=== PATIENT | female | born 1995 | race Caucasian/White ===

== ENCOUNTER 2018-11-11 08:47 | Emergency (ER) | payer SELFPAY ==
[2018-11-11 08:53] VITALS: BP 133/71
--- NOTE | 2018-11-11 10:32 | ER Document Report ---
HPI - HPI Time Seen by Provider: 11/11/18 09:57 Pain Level: 0 Notes: Patient is a 23-year-old female with no significant past medical history presents emergency department complaining of increased life stressors and feeling more anxious over the last couple days. Patient states that she had a panic attack yesterday where she felt chest tightness, dizzy, lightheadedness, and palpitations which she has had multiple times in the past. Patient states that this started when she was driving her vehicle, and subsided after she was able to calm herself down. Patient has not been on any medicines for anxiety or depression in the past. She has no SI/HI. No visual or auditory hallucinations. Patient states her last menstrual period was 2 weeks ago. She is otherwise eating and drinking without difficulty. She is urinating normally and having normal bowel movements. Patient states that she did have another episode this morning which has since resolved. Denies any prolonged immobilization, distance travel, recent surgery/trauma, personal cancer history, hormone use, smoking, or previous DVT/PE. Denies (current) any headache, fever, neck pain, changes in vision/speech/mentation/hearing, URI, sore throat, chest pain, palpitations, syncope, cough, shortness of breath, wheeze, dyspnea, abdominal pain, nausea/vomiting/diarrhea, urinary retention, dysuria, hematuria, loss of control of bowel or bladder, numbness/tingling, saddle anesthesia, muscle paralysis/weakness, or rash. - ROS Systems Reviewed and Negative: Yes All other systems reviewed and negative - REPRODUCTIVE Reproductive: DENIES: : Past Medical History - Social History Smoking Status: Never Smoker Family History: Reviewed & Not Pertinent Patient has suicidal ideation: No Patient has homicidal ideation: No Renal/ Medical History: Denies: Hx Peritoneal Dialysis - Immunizations Hx Diphtheria, Pertussis, Tetanus Vaccination: Yes Vertical Provider Document - CONSTITUTIONAL Agree With Documented VS: Yes Notes: PHYSICAL EXAMINATION: GENERAL: Well-appearing, well-nourished and in no acute distress. A&Ox4. Answers questions appropriately. HEAD: Atraumatic, normocephalic. EYES: Pupils equal round and reactive to light, extraocular movements intact, sclera anicteric, conjunctiva are normal. ENT: Nares patent and without discharge. oropharynx clear without exudates. No tonsilar hypertrophy or erythema. Moist mucous membranes. NECK: Normal range of motion, supple without lymphadenopathy LUNGS: Breath sounds clear to auscultation bilaterally and equal. No wheezes rales or rhonchi. HEART: Regular rate and rhythm without murmurs, rubs, gallops. ABDOMEN: Soft, nontender, nondistended abdomen. No guarding, no rebound. No masses appreciated. Normal bowel sounds present. No CVA tenderness bilaterally. Musculoskeletal: FROM to passive/active. Strength 5+/5. Ronaldo neg. No asymmetry to LE's. Extremities: No cyanosis, clubbing, or edema b/l. Peripheral pulses 2+. Capillary refill less than 3 seconds. NEUROLOGICAL: Normal speech, normal gait. Cranial nerves grossly intact. PSYCH: Normal mood, normal affect. SKIN: Warm, Dry, normal turgor, no rashes or lesions noted. Course - Re-evaluation Re-evalutation: 11/11/18 10:30 Patient is an afebrile, well-hydrated 23-year-old female who presents to the ED with symptoms most consistent with anxiousness. Vitals are acceptable without any significant tachycardia, tachypnea, or hypoxia. PE is otherwise unremarkable. Patient is nontoxic-appearing and is tolerating p.o. without any difficulties. Pt is currently asymptomatic. EKG unremarkable for any acute pathology. Patient has a Wells score of 0 and is PERC negative. Patient does not have any chest pain, dyspnea, or shortness of breath. Patient's presentation and symptomatology creates low suspicion for ACS, PE, pneumothorax, pericarditis, dissection, respiratory compromise, severe dehydration, sepsis, meningitis, or other systemic emergent condition at this time. Patient is aware that this condition can change from initial presentation and she needs to monitor symptoms closely and seek medical attention for any acute changes. Rx for hydroxyzine. Recommend conservative measures for symptoms. Recheck with your PCM in 2-3 days. Consider consult with Cardiology. Return to the ED with any worsening/concerning symptoms otherwise as reviewed in discharge. Patient is in agreement. - Vital Signs Vital signs: Temp Pulse Resp BP Pulse Ox 97.9 F 83 16 133/71 H 100 11/11/18 08:52 11/11/18 08:52 11/11/18 08:52 11/11/18 08:52 11/11/18 08:52 Discharge - Discharge Clinical Impression: Anxiousness Condition: Stable Disposition: HOME, SELF-CARE Instructions: Anxiety ([facility]) Additional Instructions: Maintain adequate fluid and food intake Take home medications as directed Healthy diet/exercise De-stressing techniques Monitor blood pressure and heart rate daily and keep a log Monitor symptoms for any acute changes Recheck with your PCM in 3-5 days Consider a follow-up with cardiology/Psychology clinic Return to the ED with any worsening symptoms and/or development of fever, headache, chest pain, palpitations, syncope, shortness of breath, trouble breathing, abdominal pain, n/v/d, blood in stool/urine, loss of control of bowel/bladder, urinary retention, muscle weakness/paralysis, numbness/tingling, or other worsening symptoms that are concerning to you. Prescriptions: Hydroxyzine Pamoate [Vistaril 25 mg Capsule] 25 mg PO TID PRN #15 capsule PRN Reason: Forms: Elevated Blood Pressure Referrals: [facility] [Provider Group] - Follow up as needed [facility] [Provider Group] - Follow up as needed KRISTIN GIVENS MD [ACTIVE STAFF] - Follow up as needed
--- NOTE | 2018-11-12 00:29 | EKG REPORT ---
SEVERITY:- NORMAL ECG - SINUS RHYTHM : Confirmed by: Evelyn Kirkland MD 12-Nov-2018 00:28:21
== END 2018-11-11 10:47 | disposition home or self-care (01) ==
LOC: ER 08:47
DX: F41.9 Anxiety disorder, unspecified (principal)
CPT/HCPCS: 93005; 93010; 99283

== ENCOUNTER 2019-05-19 23:44 | Emergency (ER) | payer SELFPAY ==
--- NOTE | 2019-05-20 02:11 | ER Document Report ---
ED GI/ - General Chief Complaint: Constipation Stated Complaint: BLOOD IN STOOL Time Seen by Provider: 05/20/19 01:43 [facility] [[facility]] - Follow up as needed Mode of Arrival: Ambulatory Information source: Patient Notes: This 23-year-old female patient comes emergency room for evaluation of blood in her stool. She has an aversion to using public restrooms, so she tries to hold her stool throughout the day at work and only use the restroom when she gets home. She recently got constipated from doing this, and ultimately ended up going to the emergency room at [facility] where she was evaluated and told she was constipated. She did use stool softeners and eventually began passing stool and states that it had intermittently become liquid. She does report passing some large hard stool at some point and straining a lot. She states she does have a history of hemorrhoids. She noted blood in her stool last night and today, and notes some pain in passing stool and and wiping. She looked up blood in stool on [employer] this evening and so the lower abdominal pain and blood in stool could be a sign of colon cancer and this prompted her to come to the emergency room. TRAVEL OUTSIDE OF THE [place] IN LAST 30 DAYS: No - Related Data Allergies/Adverse Reactions: No Known Allergies Allergy (Unverified 11/11/18 08:50) Past Medical History - General Information source: Patient - Social History Smoking Status: Unknown if Ever Smoked Cigarette use (# per day): No Chew tobacco use (# tins/day): No Smoking Education Provided: No Frequency of alcohol use: None Drug Abuse: None Lives with: Family Family History: Reviewed & Not Pertinent - Medical History Medical History: Negative GI Medical History: Reports: Other - Patient reports hemorrhoids after childbirth. Surgical Hx: Negative - Immunizations Hx Diphtheria, Pertussis, Tetanus Vaccination: Yes Review of Systems - Review of Systems Constitutional: No symptoms reported EENT: No symptoms reported Cardiovascular: No symptoms reported Respiratory: No symptoms reported Gastrointestinal: Abdominal pain, Constipation, Rectal bleeding Genitourinary: No symptoms reported Musculoskeletal: No symptoms reported Skin: No symptoms reported Hematologic/Lymphatic: No symptoms reported Neurological/Psychological: No symptoms reported Physical Exam - Vital signs Vitals: Temp Pulse Resp BP Pulse Ox 98.8 F 103 H 20 126/79 H 99 05/20/19 00:01 05/20/19 00:01 05/20/19 00:01 05/20/19 00:01 05/20/19 00:01 Interpretation: Normal - General General appearance: Appears well, Alert In distress: None - HEENT Head: Normocephalic, Atraumatic Eyes: Normal Pupils: PERRL - Respiratory Respiratory status: No respiratory distress - Cardiovascular Rhythm: Regular - Abdominal Inspection: Normal Tenderness: Nontender - Rectal Hemorrhoids: Anal fissure - There is a fissure noted at about 4 o'clock in the knee chest position which is quite tender to palpate. - Back Back: Normal - Extremities General upper extremity: Normal inspection General lower extremity: Normal inspection - Neurological Neuro grossly intact: Yes - Psychological Associated symptoms: Normal affect, Normal mood - Skin Skin Temperature: Warm Skin Moisture: Dry Skin Color: Normal Course - Vital Signs Vital signs: Temp Pulse Resp BP Pulse Ox 98.2 F 89 16 112/86 H 100 05/20/19 02:00 05/20/19 02:00 05/20/19 02:00 05/20/19 02:00 05/20/19 02:00 Discharge - Discharge Clinical Impression: Anal fissure Condition: Stable Disposition: HOME, SELF-CARE Additional Instructions: Anal Fissure You have a split in the tissues of the anus, called an anal fissure. This may be due to constipation, or chronic anal irritation. The fissure causes pain during bowel movements. It may bleed when you pass stool. Treat the fissure with warm sitz baths three or four times a day. Clean the anal area carefully -- special cleansing pads (Tucks) may be helpful. Sometimes prescription suppositories are helpful in reducing pain and inflammation. A stool softener (such as Metamucil) will make bowel movements less traumatic. Eat a diet high in fiber (fruits, whole grains), and drink plenty of water. See your doctor if there is profuse bleeding, increasing pain, an enlarging mass, or fever -- or if the symptoms do not resolve after treatment. Follow-up with [place] [facility] if not improving. RETURN TO THE EMERGENCY ROOM IF ANY NEW OR WORSENING SYMPTOMS. Referrals: [facility] [Provider Group] - Follow up as needed
[2019-05-20 02:36] VITALS: BP 112/86
== END 2019-05-20 02:36 | disposition home or self-care (01) ==
LOC: ER 23:44
DX: K60.2 Anal fissure, unspecified (principal); K59.00 Constipation, unspecified; R10.9 Unspecified abdominal pain

== ENCOUNTER 2019-07-28 21:44 | Emergency (ER) | payer MEDICAID ==
[2019-07-28 21:53] VITALS: BP 132/90
--- NOTE | 2019-07-28 22:31 | ER Document Report ---
ED Medical Screen (RME) - General Chief Complaint: Vaginal Bleeding Stated Complaint: VAGINAL BLEEDING Time Seen by Provider: 07/28/19 22:28 Mode of Arrival: Ambulatory Information source: Patient Notes: 23-year-old female presents emergency department with reports of heavy vaginal bleeding with clotting for the past 3 hours. Reports she is gone through 6 super size tampons in the last 3 hours. Reports she just had the Nexplanon removed on Friday. Denies abdominal pain. Denies fever vomiting diarrhea. Reports this never happened to her before. I have greeted and performed a rapid initial assessment of this patient. A comprehensive ED assessment and evaluation of the patient, analysis of test results and completion of the medical decision making process will be conducted by additional ED providers. Dictation of this chart was performed using voice recognition software; therefore, there may be some unintended grammatical errors. TRAVEL OUTSIDE OF THE [place] IN LAST 30 DAYS: No - Related Data Allergies/Adverse Reactions: No Known Allergies Allergy (Unverified 11/11/18 08:50) Past Medical History Renal/ Medical History: Denies: Hx Peritoneal Dialysis - Immunizations Hx Diphtheria, Pertussis, Tetanus Vaccination: Yes Physical Exam - Vital signs Vitals: Temp Pulse Resp BP Pulse Ox 98.1 F 98 16 132/90 H 100 07/28/19 21:52 07/28/19 21:52 07/28/19 21:52 07/28/19 21:52 07/28/19 21:52 Course - Vital Signs Vital signs: Temp Pulse Resp BP Pulse Ox 98.1 F 98 16 132/90 H 100 07/28/19 21:52 07/28/19 21:52 07/28/19 21:52 07/28/19 21:52 07/28/19 21:52
[2019-07-28 23:15] LABS: ABSOLUTE BASOPHILS # (AUTO) 0.1 10^3/uL (0.0-0.2); ABSOLUTE EOSINOPHILS # (AUTO) 0.3 10^3/uL (0.0-0.6); ABSOLUTE LYMPHOCYTES (AUTO) 2.1 10^3/uL (0.5-4.7); ABSOLUTE MONOCYTES (AUTO) 0.5 10^3/uL (0.1-1.4); ABSOLUTE NEUT (AUTO) 5.1 10^3/uL (1.7-8.2); BASOPHILS % (AUTO) 0.9 % (0-2); EOSINOPHILS % (AUTO) 3.4 % (0-6); HEMATOCRIT 38.1 % (36.0-47.0); LYMPHOCYTES % (AUTO) 26.4 % (13-45); MEAN CORPUSCULAR HEMOGLOBIN 29.7 pg (27.0-33.4); MEAN CORPUSCULAR HGB CONC 34.1 g/dL (32.0-36.0); MEAN CORPUSCULAR VOLUME 87 fl (80-97); MONOCYTES % (AUTO) 6.5 % (3-13); PLATELET COUNT 267 10^3/uL (150-450); RED BLOOD COUNT 4.37 10^6/uL (3.72-5.28); RED CELL DISTRIBUTION WIDTH 12.9 % (11.5-14.0); SEGMENTED NEUTROPHILS % (AUTO) 62.8 % (42-78); TOTAL CELLS COUNTED % (AUTO) 100 %; WHITE BLOOD COUNT 8.1 10^3/uL (4.0-10.5)
[2019-07-28 23:33] LABS: BILIRUBIN,URINE NEGATIVE (NEGATIVE); GLUCOSE, URINE NEGATIVE (NEGATIVE); KETONES,URINE NEGATIVE (NEGATIVE); LEUKOCYTE ESTERASE,URINE NEGATIVE (NEGATIVE); NITRITE,URINE NEGATIVE (NEGATIVE); PROTEIN,URINE 100 mg/dL (NEGATIVE); URINE SPECIFIC GRAVITY 1.019; UROBILINOGEN,URINE NEGATIVE mg/dL (<2.0)
[2019-07-28 23:34] LABS: APPEARANCE,URINE TURBID; COLOR,URINE RED
[2019-07-28 23:37] LABS: ALBUMIN 3.9 g/dL (3.5-5.0); ALKALINE PHOSPHATASE 69 U/L (38-126); ANION GAP 9 (5-19); ASPARTATE AMINO TRANSFERASE 15 U/L (14-36); BILIRUBIN,DIRECT 0.1 mg/dL (0.0-0.4); BILIRUBIN,TOTAL 0.2 mg/dL (0.2-1.3); BLOOD UREA NITROGEN 9 mg/dL (7-20); CALCIUM 8.8 mg/dL (8.4-10.2); CARBON DIOXIDE 23 mmol/L (22-30); CHLORIDE 109 mmol/L (98-107); GLUCOSE 105 mg/dL (75-110); TOTAL PROTEIN 6.8 g/dL (6.3-8.2)
== END 2019-07-29 02:00 | disposition left against medical advice (07) ==
LOC: ER 21:44
DX: N93.9 Abnormal uterine and vaginal bleeding, unspecified (principal); Z98.890 Other specified postprocedural states; Z53.20 Procedure and treatment not carried out because of patient's decision for unspecified reasons
CPT/HCPCS: 36415; 80053; 81001; 81025; 85025; 99281

== ENCOUNTER 2019-10-17 01:49 | Emergency (ER) | payer MEDICAID ==
[2019-10-17] MEDS ORDERED: PENICILLIN V POTASSIUM 500 MG TABLET PO ONE (04:37)
--- NOTE | 2019-10-17 04:40 | ER Document Report ---
HPI - HPI Time Seen by Provider: 10/17/19 04:30 Pain Level: 4 Context: Patient is a 24-year-old female that comes emergency department for chief complaint of developing pain over the past several days in her left upper jaw radiating up towards the left ear. She denies neck pain, sore throat, fever, change in hearing, drainage from the ear. She denies trauma. She has known dental fractures but does not have a dentist. LMP within the past month. She denies any diagnosed medical history or daily medications. - CONSTITUTIONAL Constitutional: DENIES: Fever, Chills - EENT EENT: REPORTS: Ear Pain - left ear - REPRODUCTIVE LMP: 1 wk ago Reproductive: DENIES: : Past Medical History - General Information source: Patient - Social History Smoking Status: Current Every Day Smoker Frequency of alcohol use: None Drug Abuse: None Lives with: Family Family History: Reviewed & Not Pertinent Patient has suicidal ideation: No Patient has homicidal ideation: No Renal/ Medical History: Denies: Hx Peritoneal Dialysis Surgical Hx: Negative - Immunizations Hx Diphtheria, Pertussis, Tetanus Vaccination: Yes Vertical Provider Document - CONSTITUTIONAL General Appearance: WD/WN, No Apparent Distress - INFECTION CONTROL TRAVEL OUTSIDE OF THE [place] IN LAST 30 DAYS: No - HEENT HEENT: Atraumatic, Normocephalic. negative: Normal ENT Exam - There are multiple fractured teeth in the posterior molars on the left upper and lower side, there is erythema and tenderness of the left upper gumline. Normal oropharyngeal exam otherwise with no signs of abscess. Normal facial exam, normal ear exam, normal mastoids. - NECK Neck: Normal Inspection - RESPIRATORY Respiratory: Breath Sounds Normal, No Respiratory Distress - CARDIOVASCULAR Cardiovascular: Regular Rate, Regular Rhythm - GI/ABDOMEN Gastrointestinal: Abdomen Soft, Abdomen Non-Tender - BACK Back: Normal Inspection - MUSCULOSKELETAL/EXTREMETIES Musculoskeletal/Extremeties: MAEW, FROM, Non-Tender - NEURO Level of Consciousness: Awake, Alert, Appropriate Motor/Sensory: No Motor Deficit, No Sensory Deficit - DERM Integumentary: Warm, Dry, No Rash Course - Re-evaluation Re-evalutation: No evidence of ear infection but patient does have evidence of dental fractures and secondary dental infection. No signs of abscess or concerning findings otherwise. Discussed treatment, follow-up, return precautions. Patient states understanding and agreement. - Vital Signs Vital signs: Temp Pulse Resp BP Pulse Ox 97.9 F 81 20 130/88 H 100 10/17/19 01:56 10/17/19 01:56 10/17/19 01:56 10/17/19 01:56 10/17/19 01:56 Discharge - Discharge Clinical Impression: Pain, dental, Dental infection Condition: Stable Disposition: HOME, SELF-CARE Additional Instructions: Your evaluation is consistent with a dental fracture and developing dental infection. Take antibiotics as prescribed to completion. Take Tylenol and ibuprofen together for pain (up to 600 mg of ibuprofen and 1000 g of Tylenol every 6 hours). Follow closely with the dental referral listed below. Return if you worsen including swelling of the face or any other concerning or worsening symptoms. [facility] [address], [address] Prescriptions: Penicillin V Potassium [Penicillin Vk 500 mg Tablet] 500 mg PO BID #20 tablet Referrals: NICOLLE ROGERS FNP-C [Primary Care Provider] - Follow up as needed
[2019-10-17 05:02] VITALS: BP 138/68
== END 2019-10-17 05:00 | disposition home or self-care (01) ==
LOC: ER 01:49
DX: K04.7 Periapical abscess without sinus (principal); H92.02 Otalgia, left ear; F17.200 Nicotine dependence, unspecified, uncomplicated
CPT/HCPCS: 99282; J3490